=== PATIENT | female | born 2000 | race Caucasian/White ===

== ENCOUNTER 2020-10-18 21:06 | Emergency (ER) | payer OTHER ==
[~2020-10-18] VITALS: Ht 160 cm; Wt 77.3 kg
[2020-10-18 21:20] VITALS: TEMP 98.1
[2020-10-18 22:08] LABS: COLLECTION METHOD CLEAN CATCH
[2020-10-18 22:30] LABS: BASO # 0.1 (0.0-0.2); BASO % 0.3 % (0.0-2.0); EOS % 0.1 % (0-4.0); GRAN # 12.6 (1.4-6.5); HEMATOCRIT 45.6 % (37.0-47.0); HEMOGLOBIN 15.4 g/dl (12.5-16.0); LYMPH # 1.1 (1.2-3.4); LYMPH % 7.8 % (20.0-51.0); MEAN CELL VOLUME 86 fl (80.0-100.0); MEAN CORPUSCULAR HEMOGLOBIN 29 pg (27.0-31.0); MEAN CORPUSCULAR HGB CONC 34 g/dl (33.0-37.0); MEAN PLATELET VOLUME 10.3 fl (7.4-10.4); MONO # 0.5 (0.1-0.6); MONO % 3.4 % (1.7-9.3); PLATELET COUNT 327 K/mm3 (130-400); RED BLOOD COUNT 5.31 M/mm3 (4.10-5.30); REDCELL DISTRIBUTION WIDTH-CV 12.6 % (11.5-14.5)
[2020-10-18 22:31] LABS: MUCOUS Present /lpf; PH 6 (5-8); SQUAMOUS EPITHELIAL 0-2 /hpf; URINE APPEARANCE Cloudy; URINE BACTERIA None Seen /hpf; URINE BILIRUBIN Negative (NEGATIVE); URINE BLOOD 3+ (NEGATIVE); URINE COLOR Amber; URINE GLUCOSE Negative (NEGATIVE); URINE KETONE 1+ (NEGATIVE); URINE LEUKOCYTE ESTERASE Negative (NEGATIVE); URINE NITRATE Negative (NEGATIVE); URINE PROTEIN(semi-quant) 2+ (NEGATIVE); URINE RBC >50 /hpf; URINE UROBILINOGEN Negative (NEGATIVE); URINE WBC None Seen /hpf
[2020-10-18 22:41] LABS: ALBUMIN 4.8 gm/dL (3.5-5.0); BILIRUBIN,TOTAL 0.6 mg/dL (0.0-1.0); CALCIUM 9.7 mg/dL (8.4-10.2); CREATININE, serum 0.9 (0.52-1.25); POTASSIUM 3.9 mmol/L (3.4-5.0); TOTAL PROTEIN 8.2 gm/dL (6.4-8.2)
[2020-10-19 01:51] VITALS: BP 100/65; PULSE 90
== END 2020-10-19 02:00 | disposition home or self-care (01) ==
LOC: COL.ER 21:06
PROVIDERS: Emergency Medicine
DX: N20.0 Calculus of kidney (principal); Z32.02 Encounter for pregnancy test, result negative
CPT/HCPCS: J2270; J2405; J2765; J7030; Q9967

== ENCOUNTER 2020-10-28 15:33 | Emergency (ER) | payer OTHER ==
[~2020-10-28] VITALS: Ht 160 cm; Wt 72.7 kg
[2020-10-28 15:54] LABS: COLLECTION METHOD CLEAN CATCH
[2020-10-28 16:08] LABS: MUCOUS Present /lpf; PH 6 (5-8); SQUAMOUS EPITHELIAL 0-2 /hpf; URINE APPEARANCE Hazy; URINE BACTERIA None Seen /hpf; URINE BILIRUBIN Negative (NEGATIVE); URINE BLOOD 3+ (NEGATIVE); URINE COLOR Yellow; URINE GLUCOSE Negative (NEGATIVE); URINE KETONE Trace (NEGATIVE); URINE LEUKOCYTE ESTERASE Negative (NEGATIVE); URINE NITRATE Negative (NEGATIVE); URINE PROTEIN(semi-quant) 1+ (NEGATIVE); URINE RBC >50 /hpf; URINE UROBILINOGEN Negative (NEGATIVE)
[2020-10-28 16:29] LABS: BASO # 0.1 (0.0-0.2); BASO % 0.6 % (0.0-2.0); EOS % 0.5 % (0-4.0); GRAN # 5.9 (1.4-6.5); GRAN % 71.5 % (42.2-75.2); HEMATOCRIT 44.5 % (37.0-47.0); HEMOGLOBIN 15.2 g/dl (12.5-16.0); LYMPH # 1.6 (1.2-3.4); LYMPH % 19.6 % (20.0-51.0); MEAN CELL VOLUME 86 fl (80.0-100.0); MEAN CORPUSCULAR HEMOGLOBIN 29 pg (27.0-31.0); MEAN CORPUSCULAR HGB CONC 34 g/dl (33.0-37.0); MEAN PLATELET VOLUME 10.5 fl (7.4-10.4); MONO # 0.6 (0.1-0.6); MONO % 7.4 % (1.7-9.3); PLATELET COUNT 335 K/mm3 (130-400); RED BLOOD COUNT 5.18 M/mm3 (4.10-5.30); REDCELL DISTRIBUTION WIDTH-CV 12.3 % (11.5-14.5)
[2020-10-28 16:48] LABS: ALBUMIN 4.4 gm/dL (3.5-5.0); BILIRUBIN,TOTAL 0.7 mg/dL (0.0-1.0); CALCIUM 9.2 mg/dL (8.4-10.2); CREATININE, serum 0.85 (0.52-1.25); POTASSIUM 4.2 mmol/L (3.4-5.0); TOTAL PROTEIN 7.5 gm/dL (6.4-8.2)
[2020-10-28] MEDS ORDERED: NORCO 325 MG-51 TAB PO (17:19)
[2020-10-28] MEDS ORDERED: TORADOL 10MG TA10 MG PO (17:19)
[2020-10-28 17:20] VITALS: BP 124/62; PULSE 88; TEMP 97.3
== END 2020-10-28 17:25 | disposition home or self-care (01) ==
LOC: COL.ER 15:33
PROVIDERS: Emergency Medicine; Nurse Practitioner Primary Care
DX: N20.0 Calculus of kidney (principal); Z32.02 Encounter for pregnancy test, result negative
CPT/HCPCS: J1885